=== PATIENT | female | born 1960 | race Native Hawaiian/Other Pacific Islander ===

== ENCOUNTER 2017-02-08 21:41 | Emergency (ER) | payer OTHER, BC ==
[2017-02-08 22:17] VITALS: RESP 16; TEMP 98; O2SAT 99
--- NOTE | 2017-02-08 22:21 | ED PDOC ---
Arrival/HPI - General Chief Complaint: Back Pain Time Seen by Provider: 02/08/17 21:54 Historian: Patient - History of Present Illness Narrative History of Present Illness (Text): 02/08/17 22:17 Lisha Rice is a 56 year old female who present to the emergency department for evaluation of discomfort to right lower back and lower abdomen area. Patient states that she attempted to avoid a basketball thrown by a student that was approaching her suddenly, causing her to turn awkwardly when being struck by basketball.Able to ambulate w/o any difficulty. Patient denies any other complaints at this time. Time/Duration: 4-6 hours Symptom Onset: Sudden Symptom Course: Unchanged Severity Level: Mild Activities at Onset: Light Context: School Past Medical History - Provider Review Nursing Documentation Reviewed: Yes - Infectious Disease Hx of Infectious Diseases: None - Psychiatric Hx Substance Use: No - Surgical History Hx Section: Yes Other/Comment: umbilical hernia repair Family/Social History - Physician Review Nursing Documentation Reviewed: Yes Family/Social History: No Known Family HX Smoking Status: Never Smoked Hx Alcohol Use: No Hx Substance Use: No Allergies/Home Meds Allergies/Adverse Reactions: Allergies iodine Allergy (Verified 02/08/17 22:08) SWELLING oxycodone Allergy (Verified 02/08/17 22:20) SWELLING Home Medications: Home Meds Medication Instructions Recorded Confirmed Alendronate Sodium/Cholecalc 1 tab PO DAILY 07/14/14 02/08/17 [Fosamax Plus D 70 mg-2800 Iu] Review of Systems - Physician Review All systems were reviewed & negative as marked: Yes - Review of Systems Constitutional: absent: Fevers, Night Sweats Eyes: absent: Vision Changes ENT: absent: Hearing Changes Respiratory: absent: SOB, Cough Cardiovascular: absent: Chest Pain Gastrointestinal: Abdominal Pain (discomfort to right hip and abdomen area) Genitourinary Female: absent: Dysuria, Frequency Musculoskeletal: Back Pain (discomfort to lower back) Skin: absent: Rash, Pruritis Neurological: absent: Headache, Dizziness Endocrine: absent: Diaphoresis Hemo/Lymphatic: absent: Adenopathy Psychiatric: absent: Anxiety, Depression Physical Exam Vital Signs Reviewed: Yes Vital Signs Temp Pulse Resp BP Pulse Ox 02/08/17 22:05 98.0 F 69 16 104/61 99 Temperature: Afebrile Blood Pressure: Normal Pulse: Regular Respiratory Rate: Normal Appearance: Positive for: Well-Appearing, Non-Toxic, Comfortable Pain Distress: None Mental Status: Positive for: Alert and Oriented X 3 - Systems Exam Head: Present: Atraumatic, Normocephalic Pupils: Present: PERRL Extroacular Muscles: Present: EOMI Conjunctiva: Present: Normal Mouth: Present: Moist Mucous Membranes Neck: Present: Normal Range of Motion Respiratory/Chest: Present: Clear to Auscultation, Good Air Exchange. No: Respiratory Distress, Accessory Muscle Use Cardiovascular: Present: Regular Rate and Rhythm, Normal S1, S2. No: Murmurs Abdomen: Present: Tenderness (mild to suprapubic region), Normal Bowel Sounds. No: Peritoneal Signs, Rebound, Guarding, McBurney's Point Tender Back: Present: Normal Inspection, Other (no dorsal tenderness). No: CVA Tenderness, Midline Tenderness Upper Extremity: Present: Normal Inspection. No: Cyanosis, Edema Lower Extremity: Present: Normal Inspection. No: Edema Neurological: Present: GCS=15, CN II-XII Intact, Speech Normal, Motor Func Grossly Intact, Normal Sensory Function Skin: Present: Warm, Dry, Normal Color. No: Rashes Psychiatric: Present: Alert, Oriented x 3, Normal Insight, Normal Concentration Medical Decision Making ED Course and Treatment: 02/08/17 22:25 Impression: 56 year old female complaining of discomfort to right lower back and right sided abdomen and hip area after being struck by a basketball a few hours ago. Differential Diagnosis included but are not limited to: Plan: -- Reassess and disposition Progress Notes: - Lab Interpretations Lab Results: Lab Results 02/09/17 00:00: Urine Color Yellow, Urine Appearance Clear, Urine pH 6.5, Ur Specific [place] 1.010, Urine Protein Negative, Urine Glucose (UA) Negative, Urine Ketones Negative, Urine Blood Negative, Urine Nitrate Negative, Urine Bilirubin Negative, Urine Urobilinogen 0.2, Ur Leukocyte Esterase Small H, Urine RBC 0 - 2, Urine WBC 1 - 3, Ur Epithelial Cells 1 - 3, Urine Bacteria Rare - Medication Orders Current Medication Orders: Discontinued Medications Cyclobenzaprine HCl (Flexeril) 10 mg PO ONCE ONE Stop: 02/08/17 22:30 Last Admin: 02/08/17 22:42 Dose: 10 mg Ibuprofen (Motrin Tab) 600 mg PO STAT STA Stop: 02/08/17 22:27 Last Admin: 02/08/17 22:42 Dose: 600 mg - Sharonibbrittney Statement The provider has reviewed the documentation as recorded by the Stew Abreu All medical record entries made by the Sharonibbrittney were at my direction and personally dictated by me. I have reviewed the chart and agree that the record accurately reflects my personal performance of the history, physical exam, medical decision making, and the department course for this patient. I have also personally directed, reviewed, and agree with the discharge instructions and disposition. Disposition/Present on Arrival - Present on Arrival Any Indicators Present on Arrival: No History of DVT/PE: No History of Uncontrolled Diabetes: No Urinary Catheter: No History of Decub. Ulcer: No History Surgical Site Infection Following: None - Disposition Have Diagnosis and Disposition been Completed?: Yes Diagnosis: Muscle strain, Contusion Disposition: HOME/ ROUTINE Disposition Time: 01:11 Patient Plan: Discharge Condition: GOOD Discharge Instructions (ExitCare): Contusion in Adults (ED), Muscle Strain (ED) , Muscle Spasm (ED) Additional Instructions: Rest/no strenuous physical activity/take meds as prescribed/follow up with your doctor this week Prescriptions: Cyclobenzaprine [Cyclobenzaprine HCl] 10 mg PO TID PRN #15 tab PRN Reason: Muscle Spasm Ibuprofen [Motrin] 400 mg PO Q6 PRN #16 tab PRN Reason: Pain, Moderate (4-7) Forms: [facility] (Japanese)
[2017-02-09 00:18] LABS: PH,URINE 6.5 (4.7-8.0); URINE BILIRUBIN NEGATIVE (NEGATIVE); URINE BLOOD NEGATIVE (NEGATIVE); URINE GLUCOSE (UA) NEGATIVE (NEGATIVE); URINE KETONE NEGATIVE (NEGATIVE); URINE LEUKOCYTE ESTERASE SMALL Leu/uL (NEGATIVE); URINE PROTEIN NEGATIVE mg/dL (<30 mg/dL); URINE UROBILINOGEN 0.2 E.U./dL (<1 E.U./dL)
[2017-02-09 00:24] LABS: URINE APPEARANCE CLEAR (CLEAR); URINE COLOR YELLOW (YELLOW)
[2017-02-09 00:36] LABS: URINE BACTERIA RARE (NEG); URINE RBC 0 - 2 /hpf (0-2)
[2017-02-09 06:57] VITALS: BP 105/65; PULSE 68
== END 2017-02-09 01:24 | disposition home or self-care (01) ==
LOC: ED 21:41
DX: T14.8XXA Other injury of unspecified body region, initial encounter (principal); X58.XXXA Exposure to other specified factors, initial encounter; Y92.219 Unspecified school as the place of occurrence of the external cause